=== PATIENT | female | born 1990 | race African-American/Black ===

== ENCOUNTER 2017-01-08 22:39 | Emergency (ER) | payer MEDICAID ==
[~2017-01-08] VITALS: Ht 167.6 cm; Wt 80.5 kg
[~2017-01-08 22:39] MED LIST: FS300 PO; HYDR-523 PO; LEVO750T21 PO
[2017-01-09 01:52] LABS: CLARITY URINE CLOUDY (CLEAR); COLOR URINE YELLOW (YELLOW); GLUCOSE URINE NEGATIVE (NEGATIVE); KETONES URINE NEGATIVE (NEGATIVE); LEUKOCYTE ESTERASE URINE TRACE (NEGATIVE); NITRITE URINE POSITIVE (NEGATIVE); OCCULT BLOOD URINE NEGATIVE (NEGATIVE); PROTEIN URINE NEGATIVE (NEGATIVE); SPECIFIC GRAVITY URINE 1.028 (1.005-1.030)
[2017-01-09 03:00] VITALS: BP 108/65
== END 2017-01-09 03:16 | disposition home or self-care (01) ==
LOC: ER 01-09 00:27
DX: H10.31 Unspecified acute conjunctivitis, right eye (principal); N39.0 Urinary tract infection, site not specified; H57.11 Ocular pain, right eye; F17.290 Nicotine dependence, other tobacco product, uncomplicated
CPT/HCPCS: 81001; 81025; 99283; Z7610

== ENCOUNTER 2017-02-23 00:50 | Emergency (ER) | payer MEDICAID ==
[~2017-02-23] VITALS: Ht 167.6 cm; Wt 81.0 kg
[~2017-02-23 00:50] MED LIST changes: +FERR325T23 PO; -FS300 PO
[2017-02-23] MEDS ORDERED: ACETAMINOPHEN 325MG TABLET PO STA (04:02)
[2017-02-23] MEDS ORDERED: SODIUM CHLORIDE 0.9% 1,000 ML IV ONE (04:02)
[2017-02-23 04:16] LABS: BASOPHILS % 0.5 % (0.0-2.0); EOSINOPHILS % 1.1 % (0.0-5.0); HEMATOCRIT. 36.9 % (36.0-48.0); HEMOGLOBIN. 11.9 g/dL (12.0-16.0); LYMPHOCYTES % 34.6 % (20.0-50.0); MEAN CORPUSCULAR HEMOGLOBIN 25.4 pg (28.0-32.0); MEAN CORPUSCULAR VOLUME 78.5 fL (81.0-99.0); MEAN PLATELET VOLUME 6.5 fl (7.4-10.4); MONOCYTES % 8.1 % (2.0-8.0); NEUTROPHILS % 55.7 % (40.0-76.0); PLATELET 272 x1000/uL (130-400); RED CELL DISTRIBUTION WIDTH 15.3 % (11.6-14.6)
[2017-02-23 04:29] LABS: CARBON DIOXIDE 27 mEq/L (21-32); CHLORIDE 106 mEq/L (98-107)
[2017-02-23] MEDS ORDERED: AZITHROMYCIN 500 MG TABLET PO ONE (05:30)
[2017-02-23 06:14] LABS: ETHANOL BLOOD < 10 mg/dL
[2017-02-23 06:29] LABS: *BARBITURATES SCREEN URINE NEGATIVE (NEGATIVE); *BENZODIAZEPINES SCREEN URINE NEGATIVE (NEGATIVE); *COCAINE SCREEN URINE NEGATIVE (NEGATIVE); CANNABINOID URINE SCREEN NEGATIVE (NEGATIVE); METHADONE URINE SCREEN NEGATIVE (NEGATIVE); OPIATES URINE SCREEN NEGATIVE (NEGATIVE); PHENCYCLIDINE URINE SCREEN NEGATIVE (NEGATIVE)
[2017-02-23 07:02] LABS: *AMPHETAMINES SCREEN URINE PRESUMTIVE POSITIVE (NEGATIVE)
[2017-02-23 17:01] VITALS: BP 128/72
== END 2017-02-23 17:31 | disposition home or self-care (01) ==
LOC: ER 00:51
DX: J18.9 Pneumonia, unspecified organism (principal); F17.210 Nicotine dependence, cigarettes, uncomplicated; Z59.0 Homelessness; Z86.11 Personal history of tuberculosis; Z87.81 Personal history of (healed) traumatic fracture
CPT/HCPCS: 36415; 71010; 80048; 80305; 80307; 80329; 81025; 85025; 87070; 87430; 96360; 99285; G0482; J7030; Z7610

== ENCOUNTER 2018-02-26 22:30 | Emergency (ER) | payer MEDICAID ==
[~2018-02-26] VITALS: Ht 167.6 cm; Wt 105.8 kg
[2018-02-26] MEDS ORDERED: PREN1TAB87 MT (23:20)
[2018-02-26] MEDS ORDERED: ACETAMINOPHEN 500MG TABLET PO NR (23:30)
[2018-02-27] MEDS ORDERED: PNV1TABL50 PO (00:02)
[2018-02-27] MEDS ORDERED: LIDOCAINE 5% PATCH TOP SCH (01:30)
[2018-02-27 04:14] VITALS: BP 112/60
== END 2018-02-27 04:20 | disposition home or self-care (01) ==
LOC: ER 22:30 → EDSTATUS 02-27 00:49 → ER 02-27 00:49
DX: O9A.212 Injury, poisoning and certain other consequences of external causes complicating pregnancy, second trimester (principal); S22.31XA Fracture of one rib, right side, initial encounter for closed fracture; F17.200 Nicotine dependence, unspecified, uncomplicated; W18.39XA Other fall on same level, initial encounter; Y93.89 Activity, other specified; Y92.89 Other specified places as the place of occurrence of the external cause; Y99.8 Other external cause status; Z98.890 Other specified postprocedural states; Z3A.20 20 weeks gestation of pregnancy
CPT/HCPCS: 94640; 99281; 99283; Z7610

== ENCOUNTER 2018-06-07 22:46 | Observation (INO) | payer OTHER, MEDICAID ==
[~2018-06-07] VITALS: Ht 167.6 cm; Wt 105.2 kg
[~2018-06-07 22:46] MED LIST changes: -FERR325T23 PO; -HYDR-523 PO; -LEVO750T21 PO; +PNV1TABL50 PO
== END 2018-06-07 23:55 | disposition home or self-care (01) ==
LOC: 8 EST LDRP 22:46
PROVIDERS: ADMIT Obstetrics & Gynecology; ATTEND Obstetrics & Gynecology
DX: Z34.93 Encounter for supervision of normal pregnancy, unspecified, third trimester (principal); Z3A.35 35 weeks gestation of pregnancy
CPT/HCPCS: 99281; G0378